=== PATIENT | male | born 1990 | race Caucasian/White ===

== ENCOUNTER 2018-02-27 03:32 | Emergency (ER) | payer MEDICAID ==
[2018-02-27] MEDS ORDERED: Sodium Chloride 0.9% 1000 ML 1,000 ML IV STA (03:53)
[2018-02-27] MEDS ORDERED: TORAdol 30 mg Injection IV ONE (03:53)
[2018-02-27] MEDS ORDERED: Zofran 4 MG/2 ML VIAL IV ONE (03:53)
[2018-02-27] MEDS ORDERED: Pepcid 20 MG VIAL IV ONE ×2 (03:53→04:07)
[2018-02-27] MEDS ORDERED: GI COCKTAIL 45 ML (Maalox/Lidocaine) PO ONE (03:53)
--- NOTE | 2018-02-27 03:59 | ERPHSYRPT ---
- History of Present Illness Time Seen by Provider: 02/27/18 03:47 Historian: patient Exam Limitations: no limitations Patient Subjective Stated Complaint: pt states he is having abd pain and thinks he has pancreatitis again. states he also has pain in his rt jaw and has bad teeth Triage Nursing Assessment: pt alert and oriented, answers questions approp. pt ambulatory with steady gait noted, respirations nonlabored with lungs cta. abd soft, pt states tender in upper abd. bowel sounds present x4. poor dentition with broken teeth noted. Physician History: Pt started c/o diffuse, ipper abdominal pain 2 days ago, nauseated, denies vomiting, diarrhea, fever, chills, other complaints, except left upper toothache. he has a history of pancreatitis in the past, denies alcohol abuse, or any abdominal surgeries in the past. Timing/Duration: day(s) (2) Activities at Onset: none Quality: cramping, sharpness Abdominal Pain Onset Location: epigastric Pain Radiation: back Severity of Pain-Max: severe Severity of Pain-Current: severe Modifying Factors: Improves With: nothing Associated Symptoms: nausea Previous symptoms: same symptoms as today Allergies/Adverse Reactions: No Known Drug Allergies Allergy (Verified 02/27/18 03:53) Home Medications: No Reportable Medications [No Reported Medications] 02/27/18 [History] Hx Tetanus, Diphtheria Vaccination/Date Given: Yes Hx Influenza Vaccination/Date Given: No Hx Pneumococcal Vaccination/Date Given: No Immunizations Up to Date: Yes - Review of Systems Constitutional: No Symptoms Ears, Nose, & Throat: Other (toothache) Abdominal/Gastrointestinal: Abdominal Pain, Nausea All Other Systems: Reviewed and Negative - Past Medical History GI Medical History: Pancreatitis Other Medical History: recurrent pancreatitis - Past Surgical History Past Surgical History: Yes Other Surgical History: microvaricocele repair august - Social History Smoking Status: Current every day smoker How long have you smoked: 10yr Exposure to second hand smoke: Yes Drug Use: marijuana Patient Lives Alone: No - Nursing Vital Signs Nursing Vital Signs: Initial Vital Signs Temperature 98.6 F 02/27/18 03:42 Pulse Rate 71 02/27/18 03:42 Respiratory Rate 18 02/27/18 03:42 Blood Pressure 147/99 02/27/18 03:42 O2 Sat by Pulse Oximetry 99 02/27/18 03:42 Pain Scale Pain Intensity 5 - Physical Exam General Appearance: no apparent distress Eye Exam: PERRL/EOMI, eyes nml inspection Ears, Nose, Throat Exam: normal ENT inspection, pharynx normal, moist mucous membranes, other (severe caries, multiple tooth are missing, left upper first molar is painful with severe caries.) Neck Exam: normal inspection, non-tender, supple, No mass, No JVD Respiratory Exam: normal breath sounds, lungs clear, airway intact Cardiovascular Exam: regular rate/rhythm, normal heart sounds, normal peripheral pulses, No murmur Gastrointestinal/Abdomen Exam: soft, normal bowel sounds, tenderness (diffuse, upper abdomen), No distention, No mass, No guarding, No ecchymosis, No pulsatile mass, No rebound, No hernia, No hepatomegaly, No organomegaly Back Exam: normal inspection, No CVA tenderness Extremity Exam: normal inspection Neurologic Exam: alert, oriented x 3, normal mood/affect Skin Exam: normal color, warm, dry, No rash Lymphatic Exam: No adenopathy SpO2 Interpretation: normal SpO2: 99 Oxygen Delivery: Room Air - Course Nursing assessment & vital signs reviewed: Yes EKG Interpreted by Me: RATE (84/min), NORMAL AXIS, Right Bundle Branch Block ( incomplete RBBB), Non-specific ST Changes, Other (repeat Ek:58 AM; unchanged) - CT Exams Abdomen/Pelvis CT Interpretation: Negative, Tele-radiologist Report, Other (Constipation) Ordered Tests: Active Orders 24 hr Category Date Time Status EKG-ER Only STAT Care 02/27/18 03:53 Active EKG-ER Only STAT Care 02/27/18 05:48 Active IV Insertion STAT Care 02/27/18 03:53 Active NPO (ED) STAT Care 02/27/18 03:53 Active ABDOMEN AND PELVIS W CONTRAST [CT] Stat Exams 02/27/18 03:54 Taken AMYLASE Stat Lab 02/27/18 03:57 Completed CBC W DIFF Stat Lab 02/27/18 03:57 Completed CMP Stat Lab 02/27/18 03:57 Completed ETHYL ALCOHOL Stat Lab 02/27/18 04:07 Completed LIPASE Stat Lab 02/27/18 03:57 Completed Lactic Acid Stat Lab 02/27/18 03:53 Completed TROPONIN Q3H Lab 02/27/18 03:57 Completed TROPONIN Q3H Lab 02/27/18 06:00 Received TROPONIN Q3H Lab 02/27/18 10:00 Ordered TROPONIN Q3H Lab 02/27/18 13:00 Ordered TROPONIN Q3H Lab 02/27/18 16:00 Ordered UA W/RFX UR CULTURE Stat Lab 02/27/18 04:37 Completed Urine Triage Profile Stat Lab 02/27/18 04:37 Completed Medication Summary Discontinued Medications Generic Name Dose Route Start Last Admin Trade Name Hank PRN Reason Stop Dose Admin Al Hydrox/Mg Hydrox/Simethicone Confirm 02/27/18 04:07 Maalox Es 30 Ml Unit Dose Administered 02/27/18 04:08 Dose 30 ml .ROUTE .STK-MED ONE Famotidine 20 mg 02/27/18 03:53 02/27/18 04:15 Pepcid 20 Mg Vial IV 02/27/18 03:54 20 mg STAT ONE Administration Famotidine Confirm 02/27/18 04:07 Pepcid 20 Mg Vial Administered 02/27/18 04:08 Dose 20 mg IV .STK-MED ONE Fentanyl Citrate 75 mcg 02/27/18 05:31 02/27/18 05:35 Sublimaze 100 Mcg/2 Ml IV 02/27/18 05:32 75 mcg STAT ONE Administration Fentanyl Citrate Confirm 02/27/18 05:33 Sublimaze 100 Mcg/2 Ml Administered 02/27/18 05:34 Dose 100 mcg .ROUTE .STK-MED ONE Sodium Chloride 1,000 mls @ 999 mls/hr 02/27/18 03:53 02/27/18 04:15 Sodium Chloride 0.9% 1000 Ml IV 02/27/18 04:53 999 mls/hr .Q1H1M STA Administration Sodium Chloride Confirm 02/27/18 04:08 Sodium Chloride 0.9% 1000 Ml Administered 02/27/18 04:09 Dose 1,000 mls @ ud .ROUTE .STK-MED ONE Ketorolac Tromethamine 30 mg 02/27/18 03:53 02/27/18 04:15 Toradol 30 Mg Injection IV 02/27/18 03:54 30 mg STAT ONE Administration Ketorolac Tromethamine Confirm 02/27/18 04:07 Toradol 30 Mg Injection Administered 02/27/18 04:08 Dose 30 mg .ROUTE .STK-MED ONE Lidocaine HCl Confirm 02/27/18 04:07 Xylocaine Hcl Viscous * Administered 02/27/18 04:08 Dose 15 ml .ROUTE .STK-MED ONE Magnesium Hydroxide 45 ml 02/27/18 03:53 02/27/18 04:16 Gi Cocktail 45 Ml (Maalox/Lidocaine) PO 02/27/18 03:54 45 ml STAT ONE Administration Ondansetron HCl 4 mg 02/27/18 03:53 02/27/18 04:15 Zofran 4 Mg/2 Ml Vial IV 02/27/18 03:54 4 mg STAT ONE Administration Ondansetron HCl Confirm 02/27/18 04:07 Zofran 4 Mg/2 Ml Vial Administered 02/27/18 04:08 Dose 4 mg .ROUTE .STK-MED ONE Lab/Rad Data: Laboratory Result Diagrams 02/27/18 03:57 02/27/18 03:57 Laboratory Results 02/27/18 02/27/18 02/27/18 Range/Units 06:00 04:37 04:37 WBC (4.0-10.5) K/mm3 RBC (4.1-5.6) M/mm3 Hgb (12.5-18.0) gm/dl Hct (42-50) % MCV (78-100) fl MCH (26-32) pg MCHC (32-36) g/dl RDW (11.5-14.0) % Plt Count (150-450) K/mm3 MPV (6-9.5) fl Gran % (36.0-66.0) % Eos # (Auto) (0-0.5) Absolute Lymphs (auto) (1.0-4.6) Absolute Monos (auto) (0.0-1.3) Lymphocytes % (24.0-44.0) % Monocytes % (0.0-12.0) % Eosinophils % (0.00-5.0) % Basophils % (0.0-0.4) % Absolute Granulocytes (1.4-6.9) Basophils # (0-0.4) Sodium (137-145) mmol/L Potassium (3.5-5.1) mmol/L Chloride (98-107) mmol/L Carbon Dioxide (22-30) mmol/L Anion Gap (5-15) MEQ/L BUN (9-20) mg/dL Creatinine (0.66-1.25) mg/dL Estimated GFR ML/MIN Glucose (74-106) mg/dL Lactic Acid (0.4-2.0) Calcium (8.4-10.2) mg/dL Total Bilirubin (0.2-1.3) mg/dL AST (17-59) U/L ALT (0-50) U/L Alkaline Phosphatase (38-126) U/L Troponin I < 0.012 (0.000-0.034) ng/mL Serum Total Protein (6.3-8.2) g/dL Albumin (3.5-5.0) g/dL Amylase (30-110) U/L Lipase (23-300) U/L Ur Collection Type VOID Urine Color YELLOW (YELLOW) Urine Appearance CLEAR (CLEAR) Urine pH 5.0 (5-6) Ur Specific [place] 1.010 (1.005-1.025) Urine Protein NEGATIVE (Negative) Urine Ketones NEGATIVE (NEGATIVE) Urine Blood NEGATIVE (0-5) Arnol/ul Urine Nitrite NEGATIVE (NEGATIVE) Urine Bilirubin NEGATIVE (NEGATIVE) Urine Urobilinogen NORMAL (0-1) mg/dL Ur Leukocyte Esterase NEGATIVE (NEGATIVE) Urine Culture Reflexed NO (NO) Urine Glucose NEGATIVE (NEGATIVE) mg/dL Urine Opiates Level NEGATIVE (NEGATIVE) Ur Methadone NEGATIVE (NEGATIVE) Urine Barbiturates NEGATIVE (NEGATIVE) Ur Phencyclidine (PCP) NEGATIVE (NEGATIVE) Urine Amphetamine NEGATIVE (NEGATIVE) U Benzodiazepine Level NEGATIVE (NEGATIVE) Urine Cocaine NEGATIVE (NEGATIVE) Urine Marijuana (THC) POSITIVE (NEGATIVE) Ethyl Alcohol (0-10) mg/dL Specimen Received 02/27/18 0440 02/27/18 02/27/18 02/27/18 Range/Units 04:07 03:57 03:57 WBC (4.0-10.5) K/mm3 RBC (4.1-5.6) M/mm3 Hgb (12.5-18.0) gm/dl Hct (42-50) % MCV (78-100) fl MCH (26-32) pg MCHC (32-36) g/dl RDW (11.5-14.0) % Plt Count (150-450) K/mm3 MPV (6-9.5) fl Gran % (36.0-66.0) % Eos # (Auto) (0-0.5) Absolute Lymphs (auto) (1.0-4.6) Absolute Monos (auto) (0.0-1.3) Lymphocytes % (24.0-44.0) % Monocytes % (0.0-12.0) % Eosinophils % (0.00-5.0) % Basophils % (0.0-0.4) % Absolute Granulocytes (1.4-6.9) Basophils # (0-0.4) Sodium 143 (137-145) mmol/L Potassium 4.1 (3.5-5.1) mmol/L Chloride 108 H (98-107) mmol/L Carbon Dioxide 25 (22-30) mmol/L Anion Gap 14.0 (5-15) MEQ/L BUN 21 H (9-20) mg/dL Creatinine 0.92 (0.66-1.25) mg/dL Estimated GFR > 60.0 ML/MIN Glucose 110 H (74-106) mg/dL Lactic Acid (0.4-2.0) Calcium 9.6 (8.4-10.2) mg/dL Total Bilirubin 0.30 (0.2-1.3) mg/dL AST 22 (17-59) U/L ALT 19 (0-50) U/L Alkaline Phosphatase 51 (38-126) U/L Troponin I < 0.012 (0.000-0.034) ng/mL Serum Total Protein 7.5 (6.3-8.2) g/dL Albumin 4.6 (3.5-5.0) g/dL Amylase 65 (30-110) U/L Lipase 115 (23-300) U/L Ur Collection Type Urine Color (YELLOW) Urine Appearance (CLEAR) Urine pH (5-6) Ur Specific [place] (1.005-1.025) Urine Protein (Negative) Urine Ketones (NEGATIVE) Urine Blood (0-5) Arnol/ul Urine Nitrite (NEGATIVE) Urine Bilirubin (NEGATIVE) Urine Urobilinogen (0-1) mg/dL Ur Leukocyte Esterase (NEGATIVE) Urine Culture Reflexed (NO) Urine Glucose (NEGATIVE) mg/dL Urine Opiates Level (NEGATIVE) Ur Methadone (NEGATIVE) Urine Barbiturates (NEGATIVE) Ur Phencyclidine (PCP) (NEGATIVE) Urine Amphetamine (NEGATIVE) U Benzodiazepine Level (NEGATIVE) Urine Cocaine (NEGATIVE) Urine Marijuana (THC) (NEGATIVE) Ethyl Alcohol < 10 (0-10) mg/dL Specimen Received 02/27/18 02/27/18 Range/Units 03:57 03:53 WBC 9.8 (4.0-10.5) K/mm3 RBC 4.63 (4.1-5.6) M/mm3 Hgb 15.5 (12.5-18.0) gm/dl Hct 44.0 (42-50) % MCV 95.0 (78-100) fl MCH 33.5 H (26-32) pg MCHC 35.2 (32-36) g/dl RDW 13.2 (11.5-14.0) % Plt Count 212 (150-450) K/mm3 MPV 11.0 H (6-9.5) fl Gran % 66.0 (36.0-66.0) % Eos # (Auto) 0.28 (0-0.5) Absolute Lymphs (auto) 1.78 (1.0-4.6) Absolute Monos (auto) 1.26 (0.0-1.3) Lymphocytes % 18.1 L (24.0-44.0) % Monocytes % 12.8 H (0.0-12.0) % Eosinophils % 2.8 (0.00-5.0) % Basophils % 0.3 (0.0-0.4) % Absolute Granulocytes 6.49 (1.4-6.9) Basophils # 0.03 (0-0.4) Sodium (137-145) mmol/L Potassium (3.5-5.1) mmol/L Chloride (98-107) mmol/L Carbon Dioxide (22-30) mmol/L Anion Gap (5-15) MEQ/L BUN (9-20) mg/dL Creatinine (0.66-1.25) mg/dL Estimated GFR ML/MIN Glucose (74-106) mg/dL Lactic Acid 1.0 (0.4-2.0) Calcium (8.4-10.2) mg/dL Total Bilirubin (0.2-1.3) mg/dL AST (17-59) U/L ALT (0-50) U/L Alkaline Phosphatase (38-126) U/L Troponin I (0.000-0.034) ng/mL Serum Total Protein (6.3-8.2) g/dL Albumin (3.5-5.0) g/dL Amylase (30-110) U/L Lipase (23-300) U/L Ur Collection Type Urine Color (YELLOW) Urine Appearance (CLEAR) Urine pH (5-6) Ur Specific [place] (1.005-1.025) Urine Protein (Negative) Urine Ketones (NEGATIVE) Urine Blood (0-5) Arnol/ul Urine Nitrite (NEGATIVE) Urine Bilirubin (NEGATIVE) Urine Urobilinogen (0-1) mg/dL Ur Leukocyte Esterase (NEGATIVE) Urine Culture Reflexed (NO) Urine Glucose (NEGATIVE) mg/dL Urine Opiates Level (NEGATIVE) Ur Methadone (NEGATIVE) Urine Barbiturates (NEGATIVE) Ur Phencyclidine (PCP) (NEGATIVE) Urine Amphetamine (NEGATIVE) U Benzodiazepine Level (NEGATIVE) Urine Cocaine (NEGATIVE) Urine Marijuana (THC) (NEGATIVE) Ethyl Alcohol (0-10) mg/dL Specimen Received - Progress Progress: improved Progress Note: 02/27/18 06:47 Pt has been stable, did not vomit, pain improved, afebrile. I explained our findings, and discharged him with Amoxicillin 500 mg TID, Librax PO TID as needed for pain, and Protonix 40 mg daily #30. Advised to follow up with his doctor next week, rest x 2-3 days, drink plenty of fluids, return if severe pain , vomiting, or fever> 102 F. Counseled pt/family regarding: lab results, diagnosis, need for follow-up, rad results - Departure Time of Disposition: 06:49 Departure Disposition: Home Clinical Impression: Abdominal pain Qualifiers: Abdominal location: epigastric Qualified Code(s): R10.13 - Epigastric pain Condition: Stable Critical Care Time: No Referrals: DOCTOR,NO FAMILY [Primary Care Provider] - Instructions: Acute Abdomen (Belly Pain), Adult (DC), Gastritis (DC), Ulcer and Gastritis Diet, Constipation, Adult (DC), Tooth Decay, Adult (DC) Additional Instructions: Rest x 2-3 days,d rink plenty of fluids, return if severe pain, vomiting, fever > 102 F!
[2018-02-27 04:01] LABS: BASOPHIL % 0.3 % (0.0-0.4); Basophil (Absolute #) 0.03 (0-0.4); Eosinophil % 2.8 % (0.00-5.0); Eosinophil (Absolute #) 0.28 (0-0.5); Granulocyte Absolute (ANC) 6.49 (1.4-6.9); Hemoglobin 15.5 gm/dl (12.5-18.0); Lymphocyte (Absolute #) 1.78 (1.0-4.6); Lymphocytes % 18.1 % (24.0-44.0); Mean Corpuscular Hemoglobin 33.5 pg (26-32); Mean Corpuscular Hgb Concent. 35.2 g/dl (32-36); Monocyte (Absolute #) 1.26 (0.0-1.3); Monocytes % 12.8 % (0.0-12.0); Platelet Count 212 K/mm3 (150-450); Red Blood Count 4.63 M/mm3 (4.1-5.6); Red Cell Distribution Width 13.2 % (11.5-14.0); White Blood Count 9.8 K/mm3 (4.0-10.5)
[2018-02-27] MEDS ORDERED: MAALOX ES 30 ML UNIT DOSE ONE (04:07)
[2018-02-27] MEDS ORDERED: TORAdol 30 mg Injection ONE (04:07)
[2018-02-27] MEDS ORDERED: XYLOCAINE HCl Viscous ONE (04:07)
[2018-02-27] MEDS ORDERED: Zofran 4 MG/2 ML VIAL ONE (04:07)
[2018-02-27] MEDS ORDERED: Sodium Chloride 0.9% 1000 ML 1,000 ML ONE (04:08)
[2018-02-27 04:20] LABS: ALBUMIN 4.6 g/dL (3.5-5.0); ALKALINE PHOSPHATASE 51 U/L (38-126); AMYLASE 65 U/L (30-110); BLOOD UREA NITROGEN 21 mg/dL (9-20); CHLORIDE 108 mmol/L (98-107); Calcium 9.6 mg/dL (8.4-10.2); Carbon Dioxide 25 mmol/L (22-30); Creatinine 1 0.92 mg/dL (0.66-1.25); Glucose 110 mg/dL (74-106); LIPASE 115 U/L (23-300); Potassium 4.1 mmol/L (3.5-5.1); SGOT/AST 22 U/L (17-59); SGPT/ALT 19 U/L (0-50); SODIUM 143 mmol/L (137-145); Total Protein 7.5 g/dL (6.3-8.2)
[2018-02-27 04:41] LABS: Appearance CLEAR (CLEAR); Bilirubin NEGATIVE (NEGATIVE); Blood NEGATIVE Ery/ul (0-5); Glucose NEGATIVE (NEGATIVE); Ketones NEGATIVE (NEGATIVE); Leukocyte Esterase NEGATIVE (NEGATIVE); Nitrite NEGATIVE (NEGATIVE); Protein,Urine Dip NEGATIVE (Negative); Urobilinogen NORMAL mg/dL (0-1)
[2018-02-27 04:57] LABS: Amphetamine,Urine NEGATIVE (NEGATIVE); Barbiturate,Urine NEGATIVE (NEGATIVE); Benzodiazepine,Urine NEGATIVE (NEGATIVE); Cocaine,Urine NEGATIVE (NEGATIVE); Methadone,Urine NEGATIVE (NEGATIVE); Opiate,Urine NEGATIVE (NEGATIVE); PCP,Urine NEGATIVE (NEGATIVE); THC,Urine POSITIVE (NEGATIVE)
[2018-02-27] MEDS ORDERED: SUBLIMAZE 100 MCG/2 ML IV ONE (05:31)
[2018-02-27] MEDS ORDERED: SUBLIMAZE 100 MCG/2 ML ONE (05:33)
[2018-02-27 06:57] VITALS: BP 121/82; PULSE 72; O2SAT 96
--- NOTE | 2018-02-27 09:29 | XRAY ---
Indication: Abdominal pain 2-3 days. Multiple contiguous axial images obtained through the abdomen and pelvis using 80 cc Isovue 370 contrast only. Comparison: None Lung bases essentially clear. Heart is not enlarged. Noncontrasted stomach and bowel loops appear nonobstructed. Normal appendix. No free fluid or air. Mild/moderate diffuse scattered colonic fecal debris throughout. Minimal sigmoid diverticulosis. Urinary bladder demonstrates moderate circumferential wall thickening probably due to incomplete distention. Cystitis not completely excluded. Gallbladder contracted without gallstones or biliary distention. Remaining liver, gallbladder, pancreas, spleen, adrenal glands, kidneys, ureters, bladder, and aorta appear unremarkab no pathologic retroperitoneal lymphadenopathy. Osseous structures intact. Impression: 1. Fecal stasis without obstruction and minimal sigmoid diverticulosis. 2. Urinary bladder wall thickening presumed from incomplete distention. Cystitis not completely excluded in the right clinical setting. Comment: Preliminary interpretation was made by [facility]. No critical discrepancy. CT DI 20.39
== END 2018-02-27 07:01 | disposition home or self-care (01) ==
LOC: ED 03:32
DX: R10.13 Epigastric pain (principal); K59.00 Constipation, unspecified; R11.0 Nausea; K08.89 Other specified disorders of teeth and supporting structures
CPT/HCPCS: 36000; 36415; 74177; 80053; 80307; 81002; 82150; 83605; 83690; 84484; 85025; 93005; 96360; 96361; 96372; 96374; 96375; 99285; J1885; J2405; J3010; A9270-GY; G0480